=== PATIENT | female | born 1985 | race Caucasian/White ===

== ENCOUNTER 2019-06-08 18:26 | Emergency (ER) | payer OTHER, SELFPAY ==
--- NOTE | 2019-06-08 18:49 | RAD ---
EXAM: XR Ankle Rt 3 View STANDARD PROVIDED CLINICAL HISTORY: Right ankle pain status post injury COMPARISON: None FINDINGS: Age-indeterminate avulsion fracture at the distal most aspect of the fibula. Lateral malleolar soft t issue swelling. No additional fracture is evident. Alignment appears anatomic. Joint spaces appear preserved. IMPRESSION: Lateral malleolar soft tissue swelling with age-indeterminate fibular tip avulsion fracture.
[2019-06-08] MEDS ORDERED: Ketorolac Tromethamine 30 MG/ML VIAL ONE (20:11)
== END 2019-06-08 20:50 | disposition home or self-care (01) ==
LOC: ERS 18:26
DX: S82.61XA Displaced fracture of lateral malleolus of right fibula, initial encounter for closed fracture (principal); J45.909 Unspecified asthma, uncomplicated; F41.9 Anxiety disorder, unspecified; F31.9 Bipolar disorder, unspecified; F17.210 Nicotine dependence, cigarettes, uncomplicated; W18.30XA Fall on same level, unspecified, initial encounter
CPT/HCPCS: 29515; 96372; J1885

== ENCOUNTER 2021-08-10 23:26 | Observation (INO) | payer OTHER, SELFPAY ==
[2021-08-10 23:51] LABS: #Basophils 0.1 thou/uL (0.0-0.2); #Eosinphils 0.3 thou/uL (0.0-0.7); #Lymphocytes 3.6 thou/uL (1.20-3.40); #Monocytes 0.5 thou/uL (0.11-0.59); #Neutrophils 5.5 thou/uL (1.40-6.50); %Basophils 0.6 % (0.0-1.0); %Eosinophils 2.6 % (0.0-10.0); %Lymphocytes 36.3 % (21.0-51.0); %Monocytes 5.4 % (0.0-10.0); %Neutrophils 55.1 % (42.0-75.0); Hemoglobin 12.2 g/dL (12.0-16.0); Mean Corpuscular HGB CONC 32.2 g/dL (32.0-36.0); Mean Corpuscular Hemoglobin 25.7 pg (27.0-31.0); Mean Corpuscular Volume 79.9 fL (78.0-98.0); Mean Platelet Volume 7.2 fL (7.4-10.4); Platelet Count 347 thou/uL (130-400); Red Blood Cell (RBC) Count 4.74 mill/uL (4.20-5.40)
[2021-08-11 00:11] LABS: Anion Gap 15 mmol/L (10-20); BUN (Urea Nitrogen) 16 mg/dL (7.0-18.7); Calc. Creatinine Clearance 0 mL/min (70-130); Calcium 9.5 mg/dL (7.8-10.44); Carbon Dioxide 23 mmol/L (22-29); Chloride 103 mmol/L (98-107); Glucose 109 mg/dL (70-105); Lipase 31 U/L (8-78); Potassium 3.7 mmol/L (3.5-5.1); Sodium 137 mmol/L (136-145)
[2021-08-11] MEDS ORDERED: Lidocaine Viscous Sol 2% 15 ml UD Cup ONE (02:43)
[2021-08-11] MEDS ORDERED: Mag-Al 1200 mg/1200 mg/30 ML UDCUP ONE (02:43)
[2021-08-11 03:54] LABS: ALT (SGPT) 18 U/L (8-55); AST (SGOT) 20 U/L (5-34); Albumin 4.3 g/dL (3.5-5.0); Alkaline Phosphatase 70 U/L (40-110); Bilirubin, Total 0.2 mg/dL (0.2-1.2); Globulin 3.6 g/dL (2.4-3.5); Protein, Total 7.9 g/dL (6.0-8.3)
[2021-08-11] MEDS ORDERED: Aztreonam 1 GM in Sodium Chloride 0.9% 100 ML IVPB SCH ×2 (05:00→15:00)
[2021-08-11] MEDS ORDERED: Fentanyl 250 MCG/5 ML VIAL ONE ×2 (06:49→09:27)
[2021-08-11] MEDS ORDERED: Midazolam HCl 2 mg/2 ml Vial ONE ×2 (06:49→08:11)
[2021-08-11] MEDS ORDERED: Xylocaine 1% w/ Epi 1:100K 10 ML VIAL ONE (06:55)
[2021-08-11] MEDS ORDERED: Bupivacaine PF 0.5% 30 ML VIAL ONE (06:55)
[2021-08-11] MEDS ORDERED: Morphine 4 MG/ML VIAL SLOW IVP PRN (07:09)
[2021-08-11] MEDS ORDERED: Ondansetron PF 4 MG/2 ML Vial IVP PRN (07:09)
[2021-08-11 07:13] LABS: SARS-CoV-2 NAA Rapid Test Not Detected (NotDetected)
[2021-08-11] MEDS ORDERED: Levofloxacin 500 mg/D5W 100 ml Premix Bag ONE (08:10)
[2021-08-11] MEDS ORDERED: Dexamethasone 20 MG/5 ML VIAL ONE (08:18)
[2021-08-11] MEDS ORDERED: Rocuronium Bromide 10 MG/ML (10ML VIAL) ONE (08:18)
[2021-08-11] MEDS ORDERED: Ondansetron PF 4 MG/2 ML Vial ONE (08:18)
[2021-08-11] MEDS ORDERED: Glycopyrrolate 0.2 MG/ML 5 ML SYRINGE ONE (08:18)
[2021-08-11] MEDS ORDERED: PROPOFOL 200 MG/20 ML VIAL ONE (08:18)
[2021-08-11] MEDS ORDERED: Ketorolac Tromethamine 30 MG/ML VIAL ONE (08:18)
[2021-08-11] MEDS ORDERED: Lidocaine 1% PF 5 ML VIAL ONE (08:18)
[2021-08-11] MEDS ORDERED: HYDROmorphone 2 MG/ML VIAL SLOW IVP PRN (09:06)
[2021-08-11] MEDS ORDERED: Promethazine HCl 25 MG/ML VIAL IVPB PRN (09:06)
[2021-08-11] MEDS ORDERED: Ondansetron HCl/PF 4 MG/2 ML Vial IVP PRN (09:06)
[2021-08-11] MEDS ORDERED: Meperidine HCl/PF 25 MG/ML VIAL SLOW IVP PRN (09:06)
[2021-08-11] MEDS ORDERED: Promethazine HCl 25 MG/ML VIAL IM PRN (09:06)
[2021-08-11] MEDS ORDERED: HYDROcodone/Acetaminophen 5/325 mg Tablet PO PRN (09:33)
[2021-08-11] MEDS ORDERED: Meperidine HCl/PF 25 MG/ML VIAL ONE (09:59)
[2021-08-11] MEDS: HYDROcodone/Acetaminophen 5/325 mg Tablet PO PRN ×2 (10:57→15:05)
[2021-08-11 11:38] VITALS: BP 104/65; TEMP 97.5; BMI 36.8
== END 2021-08-11 17:21 | disposition home or self-care (01) ==
LOC: ERS 23:26 → SJJU 08-11 04:30
PROVIDERS: ADMIT Surgery; ATTEND Surgery
PROC: 0FT44ZZ Resection of Gallbladder, Percutaneous Endoscopic Approach (ICD-10-PCS; principal; 2021-08-11)
DX: K80.12 Calculus of gallbladder with acute and chronic cholecystitis without obstruction (principal); J45.909 Unspecified asthma, uncomplicated; F17.210 Nicotine dependence, cigarettes, uncomplicated; K76.0 Fatty (change of) liver, not elsewhere classified; Z88.0 Allergy status to penicillin; Z20.822 Contact with and (suspected) exposure to COVID-19
CPT/HCPCS: 36415; 76705; 80048; 80053; 83690; 85025; 88304; 96365; C1713; G0378; J1100; J1885; J1956; J2175; J2250; J2405; J2704; J3010; J3490; J7620; S0020; U0002